=== PATIENT | male | born 1935 | race Caucasian/White ===

== ENCOUNTER 2021-03-05 07:20 | Day surgery (SDC) | payer BC, MEDICARE ==
[2021-03-03 12:24] LABS: BASOPHILS % (AUTO) 0.7 % (0.0-5.0); EOSINOPHILS % (AUTO) 1.2 % (0.0-8.0); HEMATOCRIT 46.2 % (42-54); MEAN CORPUSCULAR HEMOGLOBIN 31.5 pg (27.0-33.0); MEAN CORPUSCULAR HGB CONC 33.8 g/dL (32.0-36.0); MEAN CORPUSCULAR VOLUME 93.1 fL (79-99); MONOCYTES % (AUTO) 7.5 % (3.0-13.0); NEUTROPHILS % (AUTO) 76.3 % (40.0-77.0); PLATELET COUNT (AUTO) 193 K/uL (130-400); RED BLOOD CELL COUNT(AUTO) 4.96 MIL/uL (4.50-6.20); RED CELL DISTRIBUTION WIDTH 13.4 % (11.0-15.5); WHITE BLOOD COUNT (AUTO) 7.6 K/uL (4.8-10.8)
[2021-03-03 12:28] LABS: CREATININE 1.2 mg/dL (0.5-1.5); POTASSIUM 4.1 mmol/L (3.5-5.1)
[2021-03-04 09:40] VITALS: BP 152/83
[~2021-03-05] VITALS: Ht 185.4 cm; Wt 86.4 kg
[2021-03-05] VITALS (18 sets, daily range): BP systolic 142–178; BP diastolic 60–100
[~2021-03-05 07:20] MED LIST: CALC-1038 PO; LACTATED RINGERS 1000ML 1,000 ML IV ONE; LEVO112C4 PO; LEVOFLOXACIN 500 MG/D5W 100 ML 100 ML IV SCH; LISI20TA24 PO; SERT50TA PO; VITA1CAP85 PO; VITAMIN D PO
[2021-03-05] MEDS ORDERED: IOHEXOL-350 50ML VIAL IV ONE (08:11)
[2021-03-05] MEDS ORDERED: SUCCINYLCHOLINE 200MG/10ML SYR ONE (08:25)
[2021-03-05] MEDS ORDERED: LIDOCAINE PF 100MG/5ML (2%) SYRINGE 5ML ONE (08:25)
[2021-03-05] MEDS ORDERED: FENTANYL CITRATE PF 50 MCG/1 ML 2ML VIAL ONE (08:26)
[2021-03-05] MEDS ORDERED: PROPOFOL 10 MG/ML 20ML VIAL IV ONE (08:26)
== END 2021-03-05 11:10 | disposition home or self-care (01) ==
LOC: DAH 07:20 → EDSEX 13:00
PROVIDERS: ATTEND Urology
DX: N13.1 Hydronephrosis with ureteral stricture, not elsewhere classified (principal); Z20.822 Contact with and (suspected) exposure to COVID-19; N31.9 Neuromuscular dysfunction of bladder, unspecified; I72.3 Aneurysm of iliac artery; I10 Essential (primary) hypertension; I25.10 Atherosclerotic heart disease of native coronary artery without angina pectoris; Z98.890 Other specified postprocedural states; Z88.0 Allergy status to penicillin; Z88.2 Allergy status to sulfonamides; Z79.899 Other long term (current) drug therapy
CPT/HCPCS: 36415; 52332; 74018; 80048; 85025; 87635; 93005; A4215; A4221; A4222; A4223; A4358; A4663; C1758; C1769; C2617; C9803; J0330; J1956; J2001; J2704; J3010; J7120 ×2; Q9967

== ENCOUNTER 2021-07-09 07:05 | Day surgery (SDC) | payer BC, MEDICARE ==
[2021-07-06 13:13] LABS: BASOPHILS % (AUTO) 0.7 % (0.0-5.0); EOSINOPHILS % (AUTO) 2.7 % (0.0-8.0); HEMATOCRIT 46.2 % (42-54); LYMPHOCYTES % (AUTO) 19.7 % (21.0-51.0); MEAN CORPUSCULAR HEMOGLOBIN 30.6 pg (27.0-33.0); MEAN CORPUSCULAR HGB CONC 32.9 g/dL (32.0-36.0); MEAN CORPUSCULAR VOLUME 93.1 fL (79-99); MONOCYTES % (AUTO) 9.3 % (3.0-13.0); NEUTROPHILS % (AUTO) 67.3 % (40.0-77.0); PLATELET COUNT (AUTO) 197 K/uL (130-400); RED BLOOD CELL COUNT(AUTO) 4.96 MIL/uL (4.50-6.20); RED CELL DISTRIBUTION WIDTH 13.6 % (11.0-15.5); WHITE BLOOD COUNT (AUTO) 7.4 K/uL (4.8-10.8)
[2021-07-06 13:26] LABS: CREATININE 1.1 mg/dL (0.5-1.5); INR 1.11 (0.85-1.15); POTASSIUM 4.7 mmol/L (3.5-5.1)
[2021-07-06 13:27] LABS: PARTIAL THROMBOPLASTIN TIME 36.7 SEC (26.3-35.5)
[2021-07-08 09:09] VITALS: BP 148/84
[2021-07-09] VITALS (15 sets, daily range): BP systolic 139–163; BP diastolic 81–100
[~2021-07-09] VITALS: Ht 185.4 cm; Wt 86.6 kg
[~2021-07-09 07:05] MED LIST changes: -LACTATED RINGERS 1000ML 1,000 ML IV ONE; -LEVOFLOXACIN 500 MG/D5W 100 ML 100 ML IV SCH
[2021-07-09] MEDS ORDERED: LACTATED RINGERS 1000ML 1,000 ML IV ONE (07:14)
[2021-07-09] MEDS: LEVOFLOXACIN 500 MG/D5W 100 ML 100 ML IV SCH ×2 (07:30→08:37)
[2021-07-09] MEDS ORDERED: IOHEXOL-350 50ML VIAL IV ONE (07:50)
[2021-07-09] MEDS ORDERED: FENTANYL CITRATE PF 50 MCG/1 ML 2ML VIAL ONE (08:04)
[2021-07-09] MEDS ORDERED: LIDOCAINE PF 100MG/5ML (2%) SYRINGE 5ML ONE (08:04)
[2021-07-09] MEDS ORDERED: PROPOFOL 10 MG/ML 20ML VIAL IV ONE (08:04)
[2021-07-09] MEDS ORDERED: KETOROLAC 30MG VIAL (30MG/ML) ONE (08:59)
== END 2021-07-09 11:32 | disposition home or self-care (01) ==
LOC: DAH 07:05
PROVIDERS: ATTEND Urology
DX: N13.1 Hydronephrosis with ureteral stricture, not elsewhere classified (principal); Z20.822 Contact with and (suspected) exposure to COVID-19; N31.9 Neuromuscular dysfunction of bladder, unspecified; I72.3 Aneurysm of iliac artery; I10 Essential (primary) hypertension; E03.9 Hypothyroidism, unspecified; I25.2 Old myocardial infarction; Z79.01 Long term (current) use of anticoagulants; Z88.0 Allergy status to penicillin; Z88.1 Allergy status to other antibiotic agents; Z98.890 Other specified postprocedural states; Z90.89 Acquired absence of other organs
CPT/HCPCS: 36415; 52332; 74018; 80048; 85025; 85610; 85730; 87635; 93005; A4215; A4221; A4222; A4223; A4344 ×2; A4358; A4510; A4600; A4663; A5113; C1758; C1769; C2617; C9803; J1885; J1956; J2001; J2704; J3010; J7120 ×2; Q9967

== ENCOUNTER 2021-10-29 06:11 | Day surgery (SDC) | payer BC, MEDICARE ==
[2021-10-27 12:49] LABS: BASOPHILS % (AUTO) 0.7 % (0.0-5.0); EOSINOPHILS % (AUTO) 4.5 % (0.0-8.0); HEMATOCRIT 43.7 % (42-54); LYMPHOCYTES % (AUTO) 20.1 % (21.0-51.0); MEAN CORPUSCULAR HEMOGLOBIN 30.5 pg (27.0-33.0); MEAN CORPUSCULAR HGB CONC 32.5 g/dL (32.0-36.0); MEAN CORPUSCULAR VOLUME 93.8 fL (79-99); MONOCYTES % (AUTO) 10.3 % (3.0-13.0); NEUTROPHILS % (AUTO) 64.1 % (40.0-77.0); PLATELET COUNT (AUTO) 171 K/uL (130-400); RED BLOOD CELL COUNT(AUTO) 4.66 MIL/uL (4.50-6.20); RED CELL DISTRIBUTION WIDTH 13.9 % (11.0-15.5); WHITE BLOOD COUNT (AUTO) 7.2 K/uL (4.8-10.8)
[2021-10-27 12:56] LABS: POTASSIUM 4.2 mmol/L (3.5-5.1)
[2021-10-28 12:45] VITALS: BP 134/74
[2021-10-29] VITALS (11 sets, daily range): BP systolic 132–169; BP diastolic 65–90
[~2021-10-29] VITALS: Ht 185.4 cm; Wt 86.5 kg
[~2021-10-29 06:11] MED LIST changes: +IMIQ7.5C3 TP; +LEVOFLOXACIN 500 MG/D5W 100 ML 100 ML IV SCH; +MV-M1TAB20 PO; -VITAMIN D PO
[2021-10-29] MEDS ORDERED: LACTATED RINGERS 1000ML 1,000 ML IV ONE (06:42)
[2021-10-29] MEDS ORDERED: PROPOFOL 10 MG/ML 20ML VIAL IV ONE (07:50)
[2021-10-29] MEDS ORDERED: FENTANYL CITRATE PF 50 MCG/1 ML 2ML VIAL ONE (07:50)
[2021-10-29] MEDS ORDERED: NEOSTIGMINE 5MG/5ML SYR IV ONE (07:50)
[2021-10-29] MEDS ORDERED: SUCCINYLCHOLINE 200MG/10ML SYR ONE ×2 (07:50→07:51)
[2021-10-29] MEDS ORDERED: LIDOCAINE PF 100MG/5ML (2%) SYRINGE 5ML ONE ×2 (07:50→07:51)
[2021-10-29] MEDS ORDERED: GLYCOPYRROLATE 1 MG/5 ML SYRINGE ONE (07:50)
[2021-10-29] MEDS ORDERED: DEXAMETHASONE SOD PHOSPHATE 10MG/ML 1ML VIAL ONE (07:50)
[2021-10-29] MEDS ORDERED: ROCURONIUM 10MG/1ML SYR 10 MG/ML ML ONE (07:50)
[2021-10-29] MEDS ORDERED: IOHEXOL-350 50ML VIAL IV ONE (07:52)
[2021-10-29] MEDS ORDERED: PHENAZOPYRIDINE HCL 200 MG TABLET ONE (09:21)
[2021-10-29] MEDS ORDERED: ATROPINE 1MG SYG IVP ONE (10:06)
== END 2021-10-29 10:05 | disposition home or self-care (01) ==
LOC: DAH 06:11
PROVIDERS: ATTEND Urology
DX: N13.1 Hydronephrosis with ureteral stricture, not elsewhere classified (principal); Z20.822 Contact with and (suspected) exposure to COVID-19; N31.8 Other neuromuscular dysfunction of bladder; I72.3 Aneurysm of iliac artery; Z79.899 Other long term (current) drug therapy; Z88.0 Allergy status to penicillin; Z88.1 Allergy status to other antibiotic agents; Z88.8 Allergy status to other drugs, medicaments and biological substances
CPT/HCPCS: 36415; 52332; 74420; 80048; 85025; 87635; 93005; A4215 ×2; A4221; A4222; A4223; A4344; A4358; A4510; A4600; A4663; A6260; C1758; C1769; C2617; C9803; J0330 ×2; J0461; J1100; J1956; J2001 ×2; J2704; J2710; J3010; J3490; J7120 ×2; Q9967

== ENCOUNTER 2022-07-08 06:23 | Day surgery (SDC) | payer MEDICARE ==
[2022-07-06 14:04] LABS: BASOPHILS % (AUTO) 0.7 % (0.0-5.0); EOSINOPHILS % (AUTO) 3.8 % (0.0-8.0); LYMPHOCYTES % (AUTO) 19.2 % (21.0-51.0); MEAN CORPUSCULAR HEMOGLOBIN 30.7 pg (27.0-33.0); MONOCYTES % (AUTO) 12.2 % (3.0-13.0); NEUTROPHILS % (AUTO) 63.8 % (40.0-77.0); PLATELET COUNT (AUTO) 178 K/uL (130-400); RED BLOOD CELL COUNT(AUTO) 4.73 MIL/uL (4.50-6.20); RED CELL DISTRIBUTION WIDTH 13.8 % (11.0-15.5); WHITE BLOOD COUNT (AUTO) 7.6 K/uL (4.8-10.8)
[2022-07-06 14:13] LABS: CREATININE 1.1 mg/dL (0.5-1.5); POTASSIUM 4.4 mmol/L (3.5-5.1)
[2022-07-07 11:26] VITALS: BP 142/81
[~2022-07-08] VITALS: Ht 185.4 cm; Wt 81.2 kg
[2022-07-08] VITALS (16 sets, daily range): BP systolic 129–149; BP diastolic 74–97
[~2022-07-08 06:23] MED LIST changes: -IMIQ7.5C3 TP; -LEVOFLOXACIN 500 MG/D5W 100 ML 100 ML IV SCH
[2022-07-08] MEDS ORDERED: LACTATED RINGERS 1000ML 1,000 ML IV ONE (06:37)
[2022-07-08] MEDS ORDERED: LEVOFLOXACIN 500 MG/D5W 100 ML 100 ML ONE (06:37)
[2022-07-08] MEDS ORDERED: IOHEXOL-350 50ML VIAL IV ONE (07:11)
[2022-07-08] MEDS ORDERED: SUCCINYLCHOLINE 200MG/10ML SYR ONE (08:25)
[2022-07-08] MEDS ORDERED: LIDOCAINE PF 100MG/5ML (2%) SYRINGE 5ML ONE (08:25)
[2022-07-08] MEDS ORDERED: DEXAMETHASONE SOD PHOSPHATE 10MG/ML 1ML VIAL ONE (08:25)
[2022-07-08] MEDS ORDERED: PROPOFOL 10 MG/ML 20ML VIAL IV ONE (08:26)
[2022-07-08] MEDS ORDERED: ONDANSETRON 4MG INJ ONE (08:26)
[2022-07-08] MEDS ORDERED: GLYCOPYRROLATE 1 MG/5 ML SYRINGE ONE (08:26)
[2022-07-08] MEDS ORDERED: NEOSTIGMINE 5MG/5ML SYR IV ONE (08:26)
[2022-07-08] MEDS ORDERED: ROCURONIUM 10MG/1ML SYR 10 MG/ML ML ONE (08:26)
[2022-07-08] MEDS ORDERED: FENTANYL CITRATE PF 50 MCG/1 ML 2ML VIAL ONE (08:26)
[2022-07-08] MEDS ORDERED: EPHEDRINE SULFATE 50 MG/ML AMPULE ONE (08:38)
[2022-07-08] MEDS ORDERED: GENTAMICIN 80 MG/NS 100 ML PB 100 ML IV ONE (08:47)
[2022-07-08] MEDS ORDERED: SUGAMMADEX SODIUM 200 MG/2 ML VIAL IV ONE (08:51)
== END 2022-07-08 10:55 | disposition home or self-care (01) ==
LOC: DAH 06:23
PROVIDERS: ATTEND Urology
DX: N13.1 Hydronephrosis with ureteral stricture, not elsewhere classified (principal); Z20.822 Contact with and (suspected) exposure to COVID-19; I72.3 Aneurysm of iliac artery; N31.8 Other neuromuscular dysfunction of bladder; I45.10 Unspecified right bundle-branch block; I25.2 Old myocardial infarction; I10 Essential (primary) hypertension; I48.91 Unspecified atrial fibrillation; Z88.0 Allergy status to penicillin; Z88.2 Allergy status to sulfonamides; Z98.890 Other specified postprocedural states; Z90.89 Acquired absence of other organs; Z79.82 Long term (current) use of aspirin; Z79.899 Other long term (current) drug therapy
CPT/HCPCS: 80048; 85025; 87426; 36415; 93005; 52332; 74420; A6260; A4663; J7120 ×2; A4344; C1758; C2617; J3010; J0330; J3490 ×2; J1100; J2710; J1956; J2001; J2704; J2405; J1580; Q9967; A4358; C1769 ×2; A4215; A4223; A4222; A4221; A4600

== ENCOUNTER → 2022-10-02 | Outpatient (CLI) | payer MEDICARE | END | disposition home or self-care (01) | LOC: SLP 19:56 | PROVIDERS: ATTEND Internal Medicine | DX: G47.33 Obstructive sleep apnea (adult) (pediatric) (principal); R06.83 Snoring | CPT/HCPCS: 95811 ==

== ENCOUNTER 2022-11-18 07:11 | Day surgery (SDC) | payer MEDICARE ==
[2022-11-16 13:02] LABS: BASOPHILS % (AUTO) 0.6 % (0.0-5.0); EOSINOPHILS % (AUTO) 0.8 % (0.0-8.0); HEMATOCRIT 45.2 % (42-54); LYMPHOCYTES % (AUTO) 10.3 % (21.0-51.0); MEAN CORPUSCULAR HEMOGLOBIN 30.5 pg (27.0-33.0); MEAN CORPUSCULAR HGB CONC 32.7 g/dL (32.0-36.0); MONOCYTES % (AUTO) 2.5 % (3.0-13.0); NEUTROPHILS % (AUTO) 85.2 % (40.0-77.0); PLATELET COUNT (AUTO) 174 K/uL (130-400); RED BLOOD CELL COUNT(AUTO) 4.86 MIL/uL (4.50-6.20); WHITE BLOOD COUNT (AUTO) 7.2 K/uL (4.8-10.8)
[2022-11-16 13:15] LABS: INR 1.06 (0.85-1.15); PROTHROMBIN TIME 11.5 SEC (9.6-11.6)
[2022-11-16 13:16] LABS: PARTIAL THROMBOPLASTIN TIME 38.4 SEC (26.3-35.5)
[2022-11-16 13:22] LABS: POTASSIUM 4.3 mmol/L (3.5-5.1)
[2022-11-16 13:44] VITALS: BP 145/78
[2022-11-18] VITALS (17 sets, daily range): BP systolic 128–160; BP diastolic 71–84
[~2022-11-18] VITALS: Ht 185.4 cm; Wt 81.7 kg
[~2022-11-18 07:11] MED LIST changes: +LEVOFLOXACIN 500 MG/D5W 100 ML 100 ML IV SCH; -MV-M1TAB20 PO
[2022-11-18] MEDS ORDERED: LIDOCAINE HCL MPF 1% 5ML VIAL ONE (07:41)
[2022-11-18] MEDS ORDERED: DEXAMETHASONE SOD PHOSPHATE 10MG/ML 1ML VIAL ONE (07:41)
[2022-11-18] MEDS ORDERED: ONDANSETRON 4MG INJ ONE (07:41)
[2022-11-18] MEDS ORDERED: FENTANYL CITRATE PF 50 MCG/1 ML 2ML VIAL ONE (07:42)
[2022-11-18] MEDS ORDERED: PROPOFOL 10 MG/ML 20ML VIAL IV ONE (07:42)
[2022-11-18] MEDS ORDERED: GLYCOPYRROLATE 1 MG/5 ML SYRINGE ONE (07:42)
[2022-11-18] MEDS ORDERED: ROCURONIUM 10MG/1ML SYR 10 MG/ML ML ONE (07:42)
[2022-11-18] MEDS ORDERED: IOHEXOL-350 50ML VIAL IV ONE (08:07)
[2022-11-18] MEDS ORDERED: HYDRALAZINE 20MG/ML VIAL ONE (09:12)
[2022-11-18] MEDS ORDERED: PHENAZOPYRIDINE HCL 200 MG TABLET ONE (09:36)
== END 2022-11-18 10:44 | disposition home or self-care (01) ==
LOC: DAH 07:11
PROVIDERS: ATTEND Urology
DX: N13.1 Hydronephrosis with ureteral stricture, not elsewhere classified (principal); Z20.822 Contact with and (suspected) exposure to COVID-19; N31.9 Neuromuscular dysfunction of bladder, unspecified; I72.3 Aneurysm of iliac artery; I10 Essential (primary) hypertension; Z79.899 Other long term (current) drug therapy; Z79.01 Long term (current) use of anticoagulants; Z88.0 Allergy status to penicillin; Z98.890 Other specified postprocedural states; Z88.2 Allergy status to sulfonamides; Z90.89 Acquired absence of other organs
CPT/HCPCS: 80048; 85025; 85610; 85730; 87426; 36415; 52332; 74420; A6260; A4663; J7120; A4344; C1769 ×2; C2617; J3010; J3490 ×2; J1100; J1956; J0360; J2704; J2405; Q9967; A4358; A4215; A4223; A4222; A4221; A4600; A4510

== ENCOUNTER 2023-03-03 07:11 | Day surgery (SDC) | payer MEDICARE ==
[2023-03-01 13:16] LABS: BASOPHILS % (AUTO) 0.5 % (0.0-5.0); EOSINOPHILS % (AUTO) 2.7 % (0.0-8.0); HEMATOCRIT 44.6 % (42-54); LYMPHOCYTES % (AUTO) 13.5 % (21.0-51.0); MEAN CORPUSCULAR HEMOGLOBIN 31.7 pg (27.0-33.0); MEAN CORPUSCULAR HGB CONC 33.6 g/dL (32.0-36.0); MEAN CORPUSCULAR VOLUME 94.3 fL (79-99); MONOCYTES % (AUTO) 8.6 % (3.0-13.0); NEUTROPHILS % (AUTO) 74.5 % (40.0-77.0); PLATELET COUNT (AUTO) 160 K/uL (130-400); RED BLOOD CELL COUNT(AUTO) 4.73 MIL/uL (4.50-6.20); RED CELL DISTRIBUTION WIDTH 13.6 % (11.0-15.5); WHITE BLOOD COUNT (AUTO) 8.1 K/uL (4.8-10.8)
[2023-03-01 13:22] VITALS: BP 145/78
[2023-03-01 13:28] LABS: POTASSIUM 4.1 mmol/L (3.5-5.1)
[2023-03-03] VITALS (17 sets, daily range): BP systolic 102–154; BP diastolic 61–88
[~2023-03-03] VITALS: Ht 185.4 cm; Wt 84.9 kg
[2023-03-03] MEDS ORDERED: LACTATED RINGERS 1000ML 1,000 ML IV ONE (07:22)
[2023-03-03] MEDS ORDERED: IOHEXOL-350 50ML VIAL IV ONE (08:57)
[2023-03-03] MEDS ORDERED: PROPOFOL 10 MG/ML 20ML VIAL IV ONE (09:04)
[2023-03-03] MEDS ORDERED: LIDOCAINE PF 100MG/5ML (2%) SYRINGE 5ML ONE (09:04)
[2023-03-03] MEDS ORDERED: FENTANYL CITRATE PF 50 MCG/1 ML 2ML VIAL ONE (09:05)
[2023-03-03] MEDS ORDERED: GLYCOPYRROLATE 1 MG/5 ML SYRINGE ONE (09:31)
[2023-03-03] MEDS ORDERED: PHENAZOPYRIDINE HCL 200 MG TABLET ONE (11:22)
== END 2023-03-03 11:45 | disposition home or self-care (01) ==
LOC: DAH 07:11
PROVIDERS: ATTEND Urology
DX: N13.1 Hydronephrosis with ureteral stricture, not elsewhere classified (principal); Z20.822 Contact with and (suspected) exposure to COVID-19; N21.0 Calculus in bladder; I72.3 Aneurysm of iliac artery; N13.8 Other obstructive and reflux uropathy; N32.89 Other specified disorders of bladder; N31.9 Neuromuscular dysfunction of bladder, unspecified; I10 Essential (primary) hypertension; I48.91 Unspecified atrial fibrillation; Z88.8 Allergy status to other drugs, medicaments and biological substances; Z88.0 Allergy status to penicillin; Z88.2 Allergy status to sulfonamides; Z98.890 Other specified postprocedural states; Z79.82 Long term (current) use of aspirin
CPT/HCPCS: 80048; 85025; 87426; 36415 ×2; 93005; 52317; 52332; 82360; 74420; A4663; J7120 ×2; A4344; C1758; J3010; J3490; J1956; J2001; J2704; Q9967; A4358; C2617; C1769; A4215; A4223; A4222; A4221; A4600; A4510

== ENCOUNTER 2023-06-30 08:03 | Day surgery (SDC) | payer MEDICARE ==
[2023-06-28 11:51] VITALS: BP 164/89; PULSE 84; RESP 18
[2023-06-28 12:07] LABS: BASOPHILS # (AUTO) 0.05 K/uL (0.00-0.20); BASOPHILS % (AUTO) 0.7 % (0.0-5.0); EOSINOPHILS # (AUTO) 0.13 K/uL (0.00-0.70); EOSINOPHILS % (AUTO) 1.7 % (0.0-8.0); IMMATURE GRANULOCYTE ABSOLUTE 0.02 K/uL (0-1); LYMPHOCYTES % (AUTO) 13.6 % (21.0-51.0); MEAN CORPUSCULAR HEMOGLOBIN 31.2 pg (27.0-33.0); MEAN CORPUSCULAR HGB CONC 33.4 g/dL (32.0-36.0); MEAN CORPUSCULAR VOLUME 93.4 fL (79-99); MONOCYTES # (AUTO) 0.7 K/uL (0.1-1.0); MONOCYTES % (AUTO) 9.1 % (3.0-13.0); NEUTROPHILS # (AUTO) 5.7 K/uL (1.8-7.7); NEUTROPHILS % (AUTO) 74.6 % (40.0-77.0); PLATELET COUNT (AUTO) 172 K/uL (130-400); RED BLOOD CELL COUNT(AUTO) 5.03 MIL/uL (4.50-6.20); RED CELL DISTRIBUTION WIDTH 13.4 % (11.0-15.5); WHITE BLOOD COUNT (AUTO) 7.7 K/uL (4.8-10.8)
[2023-06-28 12:15] LABS: CREATININE 1.2 mg/dL (0.5-1.5); POTASSIUM 3.9 mmol/L (3.5-5.1)
[2023-06-30] VITALS (13 sets, daily range): BP systolic 137–170; BP diastolic 75–97; PULSE 65–83; RESP 13–16
[~2023-06-30] VITALS: Ht 185.4 cm; Wt 86.7 kg
[~2023-06-30 08:03] MED LIST changes: -LEVOFLOXACIN 500 MG/D5W 100 ML 100 ML IV SCH
[2023-06-30] MEDS ORDERED: LEVOFLOXACIN 500 MG/D5W 100 ML 100 ML ONE (08:51)
[2023-06-30] MEDS ORDERED: LACTATED RINGERS 1000ML 1,000 ML IV ONE (08:51)
[2023-06-30] MEDS ORDERED: IOHEXOL-350 50ML VIAL IV ONE (09:05)
[2023-06-30] MEDS ORDERED: PROPOFOL 10 MG/ML 20ML VIAL IV ONE ×2 (10:14→10:52)
[2023-06-30] MEDS ORDERED: FENTANYL CITRATE PF 50 MCG/1 ML 2ML VIAL ONE ×2 (10:15→11:08)
[2023-06-30] MEDS ORDERED: EPHEDRINE SULFATE 50 MG/ML AMPULE ONE (10:41)
[2023-06-30] MEDS ORDERED: PHENAZOPYRIDINE HCL 200 MG TABLET ONE (12:39)
[2023-07-11 11:33] LABS: STONE COLOR SEE SEPARATE REPORT; STONE SIZE SEE SEPARATE REPORT
[2023-07-11 11:34] LABS: STONE COMPOSITION SEE SEPARATE REPORT; STONE WEIGHT SEE SEPARATE REOPRT
== END 2023-06-30 13:00 | disposition home or self-care (01) ==
LOC: DAH 08:03
PROVIDERS: ATTEND Urology
DX: N13.1 Hydronephrosis with ureteral stricture, not elsewhere classified (principal); N21.0 Calculus in bladder; N31.9 Neuromuscular dysfunction of bladder, unspecified; I72.3 Aneurysm of iliac artery; I49.1 Atrial premature depolarization; I45.10 Unspecified right bundle-branch block; I10 Essential (primary) hypertension; F41.9 Anxiety disorder, unspecified; I25.2 Old myocardial infarction; Z79.01 Long term (current) use of anticoagulants; Z79.899 Other long term (current) drug therapy; Z88.0 Allergy status to penicillin; Z88.2 Allergy status to sulfonamides; Z90.89 Acquired absence of other organs; Z98.890 Other specified postprocedural states; Z79.82 Long term (current) use of aspirin
CPT/HCPCS: 80048; 85025; 36415 ×2; 93005; 52317; 52332; 82360; 74420; A6260; A4663; J7120 ×2; A4344; C1758; J3010; J1956; J3490; J2704 ×2; Q9967; A4358; C2617; C1769; A4215; A4223; A4222; A4221; A4510; A4600

== ENCOUNTER 2024-02-16 07:08 | Day surgery (SDC) | payer MEDICARE ==
[2024-02-14 12:45] LABS: BASOPHILS # (AUTO) 0.05 K/uL (0.00-0.20); BASOPHILS % (AUTO) 0.7 % (0.0-5.0); EOSINOPHILS # (AUTO) 0.18 K/uL (0.00-0.70); EOSINOPHILS % (AUTO) 2.3 % (0.0-8.0); HEMATOCRIT 44.7 % (42-54); IMMATURE GRANULOCYTE ABSOLUTE 0.02 K/uL (0-1); LYMPHOCYTES # (AUTO) 1.4 K/uL (1.0-4.8); LYMPHOCYTES % (AUTO) 18.6 % (21.0-51.0); MEAN CORPUSCULAR HEMOGLOBIN 31.7 pg (27.0-33.0); MEAN CORPUSCULAR HGB CONC 34.5 g/dL (32.0-36.0); MONOCYTES # (AUTO) 0.7 K/uL (0.1-1.0); MONOCYTES % (AUTO) 9.4 % (3.0-13.0); NEUTROPHILS # (AUTO) 5.3 K/uL (1.8-7.7); NEUTROPHILS % (AUTO) 68.7 % (40.0-77.0); PLATELET COUNT (AUTO) 172 K/uL (130-400); RED BLOOD CELL COUNT(AUTO) 4.86 MIL/uL (4.50-6.20); RED CELL DISTRIBUTION WIDTH 13.8 % (11.0-15.5); WHITE BLOOD COUNT (AUTO) 7.7 K/uL (4.8-10.8)
[2024-02-14 12:58] LABS: CREATININE 1.1 mg/dL (0.5-1.3)
[2024-02-14 13:10] VITALS: BP 142/86; PULSE 79; RESP 16
[2024-02-16] VITALS (11 sets, daily range): BP systolic 137–165; BP diastolic 76–85; PULSE 60–67; RESP 10–18
[~2024-02-16] VITALS: Ht 185.4 cm; Wt 85.8 kg
[~2024-02-16 07:08] MED LIST changes: +AMLO-257 PO; -CALC-1038 PO
[2024-02-16] MEDS: LACTATED RINGERS 1000ML 1,000 ML IV ONE (07:54)
[2024-02-16] MEDS: LEVOFLOXACIN 500 MG/D5W 100 ML 100 ML ONE (07:54)
[2024-02-16] MEDS ORDERED: LIDOCAINE PF 100MG/5ML (2%) SYRINGE 5ML ONE (08:13)
[2024-02-16] MEDS ORDERED: FENTANYL CITRATE PF 50 MCG/1 ML 2ML VIAL ONE (08:14)
[2024-02-16] MEDS ORDERED: PROPOFOL 10 MG/ML 20ML VIAL IV ONE (08:14)
[2024-02-16] MEDS ORDERED: ONDANSETRON 4MG INJ ONE (08:31)
[2024-02-16] MEDS ORDERED: DEXAMETHASONE SOD PHOSPHATE 10MG/ML 1ML VIAL ONE (08:31)
[2024-02-16] MEDS ORDERED: IOHEXOL-350 50ML VIAL IV ONE (08:54)
[2024-02-16] MEDS: PHENAZOPYRIDINE HCL 200 MG TABLET ONE (09:38)
== END 2024-02-16 10:15 | disposition home or self-care (01) ==
LOC: DAH 07:08
PROVIDERS: ATTEND Urology
DX: N13.1 Hydronephrosis with ureteral stricture, not elsewhere classified (principal); N13.5 Crossing vessel and stricture of ureter without hydronephrosis; N31.8 Other neuromuscular dysfunction of bladder; I25.2 Old myocardial infarction; I45.10 Unspecified right bundle-branch block; Z79.899 Other long term (current) drug therapy; Z98.890 Other specified postprocedural states; Z79.01 Long term (current) use of anticoagulants; Z90.89 Acquired absence of other organs
CPT/HCPCS: 80048; 85025; 36415; 93005; 52332; 74420; A4663; C1876; J7120 ×2; A4344; C1758; J3010; J1100; J1956; J2001; J2704; J2405; Q9967; A4358; A4215; A4222; A4221; A4510; A4223 ×2; A4600; J3490